=== PATIENT | male | born 1985 | race Caucasian/White ===

== ENCOUNTER → 2019-05-29 | Outpatient (CLI) | payer OTHER ==
--- NOTE | ~2019-05-29 | PF ---
[address] [address] PULMONARY FUNCTION REPORT Name: CYNTHIAIAN DALTON Room: [facility] M.R.#: [id number] Admission: 05/29/19 Attend Phys: Ashwin Freeman MD Discharge: Date of : 85 Report #: [id number] THIS REPORT FOR: //name// CC: Ashwin Freeman [facility] physician/PCP PULMONARY FUNCTION TEST FINDINGS: Spirogram shows normal lung volumes, normal FEV1 to FVC ratio. A midflow rate was mildly decreased at 64% and improved with a bronchodilator suggestive of peripheral airway disease with delayed plateauing. Otherwise, his lung volumes including total lung capacity, residual volume were within normal. Diffusion capacity was normal. IMPRESSION: Unremarkable pulmonary function test; however, decreased midflow rates suggestive of peripheral airway obstruction with a delayed plateauing. However, clinical correlation is indicated. A normal diffusion, normal lung volumes. By: [id number] Karlos Lamar MD /nt
== END ==
LOC: M.PUL 05-17 14:50
DX: J45.909 Unspecified asthma, uncomplicated (principal)